=== PATIENT | female | born 1945 | race Caucasian/White ===

== ENCOUNTER 2018-05-17 17:24 | Inpatient (IN) | payer MEDICARE, OTHER ==
[~2018-05-17] VITALS: Ht 152.4 cm; Wt 65.3 kg
[~2018-05-17 17:24] MED LIST: DIGO250T PO; DOCU-270 PO; FOLI1TAB16 PO; LEVO200T8 PO; LIDO30AD10 TP; OXCA300T4 PO; OXYB5TAB PO
--- NOTE | 2018-05-17 18:01 | NUR ---
BIB [facility] FOR BILATERAL LOWER EXTREMITY PAIN AND SWELLING. A/OX3. DENIES CHEST PAIN/SOB. ON CONT O2 VIA NC. NAD. VSS RR EVEN AND UNLABORED. ALL NEEDS ARE ATTENDED, WILL CONT TO MONITOR
[2018-05-17 18:06] LABS: BASOPHILS % (AUTO) 1.1 % (0.0-2.0); EOSINOPHILS % (AUTO) 1.8 % (0.0-6.0); HEMATOCRIT 36 % (33-45); HEMOGLOBIN 11.7 g/dL (11.5-14.8); LYMPHOCYTES # (AUTO) 0.9 /CMM (0.8-4.8); LYMPHOCYTES % (AUTO) 24.8 % (20.0-44.0); MEAN CORPUSCULAR HEMOGLOBIN 31 PG (26.0-33.0); MEAN CORPUSCULAR HGB CONC 33 g/dl (31.0-36.0); MEAN CORPUSCULAR VOLUME 96 fL (82-100); MONOCYTES # (AUTO) 0.5 /CMM (0.1-1.30); MONOCYTES % (AUTO) 14.8 % (2.0-12.0); NEUTROPHILS # (AUTO) 2.1 /CMM (1.8-8.9); NEUTROPHILS % (AUTO) 57.5 % (43.0-81.0); PLATELET COUNT (AUTO) 128 /CMM (150-450); RDW COEFFICIENT OF VARIATION 14.3 (11.5-15.0); RED BLOOD CELL COUNT(AUTO) 3.74 MIL/uL (4.0-5.2); WHITE BLOOD COUNT (AUTO) 3.6 K/uL (4.3-11.0)
[2018-05-17 18:17] LABS: CALCIUM, SERUM 9.5 mg/dL (8.5-10.1); CARBON DIOXIDE 27 mmol/L (21-32); CHLORIDE 105 mmol/L (98-107); CREATININE 1.3 mg/dL (0.6-1.3); GLUCOSE 98 mg/dL (74-106); POTASSIUM 4.5 mmol/L (3.5-5.1); SODIUM SERUM 138 mmol/L (136-145); UREA NITROGEN, BLOOD 20 mg/dL (7-18)
[2018-05-17 18:22] LABS: INR 0.96 (0.85-1.15)
[2018-05-17 18:28] LABS: TROPONIN I < 0.017 ng/mL (0.00-0.056)
[2018-05-17 18:30] LABS: ALANINE AMINOTRANSFERASE 10 U/L (12-78); ALBUMIN 3.2 g/dL (3.4-5.0); ALKALINE PHOSPHATASE 75 U/L (46-116); ASPARTATE AMINOTRANSFERASE 8 U/L (15-37); B-TYPE NATRIURETIC PEPTIDE 902 PG/ML (0-125); BILIRUBIN,DIRECT 0.1 mg/dL (0.0-0.2); BILIRUBIN,TOTAL 0.3 mg/dL (0.2-1.0); TOTAL PROTEIN, SERUM 6.5 g/dL (6.4-8.2)
[2018-05-17] MEDS ORDERED: NITROGLYCERIN PACKET 1 GM PACKET TOP ONE (18:30)
[2018-05-17] MEDS ORDERED: ASPIRIN 325 MG TABLET PO ONE (18:30)
[2018-05-17] MEDS ORDERED: FUROSEMIDE 20 MG/2 ML VIAL IV ONE (18:30)
[2018-05-17] MEDS ORDERED: METR500T4 PO (18:53)
[2018-05-17] MEDS ORDERED: TOLT4CAP PO (18:53)
[2018-05-17] MEDS ORDERED: LEVO137T2 PO (18:53)
[2018-05-17] MEDS ORDERED: GABA-532 PO (18:53)
[2018-05-17] MEDS ORDERED: SERT25TA PO (18:53)
[2018-05-17] MEDS ORDERED: DILT-32 PO (18:53)
[2018-05-17] MEDS ORDERED: ZOLP5TAB8 PO (18:53)
[2018-05-17] MEDS ORDERED: NALO25TA PO (18:53)
[2018-05-17] MEDS ORDERED: SENN-167 PO (18:53)
[2018-05-17] MEDS ORDERED: CIPR-262 PO (18:53)
[2018-05-17] MEDS ORDERED: OXYC-133 PO (18:53)
[2018-05-17] MEDS ORDERED: DIVA-78 PO (18:53)
[2018-05-17] MEDS ORDERED: ARIP20TA4 PO (18:53)
[2018-05-17] MEDS ORDERED: DOCU250C14 PO (18:53)
--- NOTE | 2018-05-17 18:57 | NUR ---
CALLED DR WRIGHT ANSWERING SERVICE, LEFT A VOICEMAIL.
[2018-05-17] MEDS ORDERED: methylPREDNISolone SOD SUCC 125 MG/2ML VIAL IV ONE (19:00)
[2018-05-17] MEDS ORDERED: methylPREDNISolone SOD SUCC 125 MG/2ML VIAL ONE (19:24)
[2018-05-17] MEDS ORDERED: FUROSEMIDE 20 MG/2 ML VIAL ONE (19:24)
[2018-05-17] MEDS ORDERED: ASPIRIN 325 MG TABLET ONE (19:25)
[2018-05-17] MEDS ORDERED: NITROGLYCERIN PACKET 1 GM PACKET ONE (19:25)
[2018-05-17 19:50] LABS: APPEARANCE,URINE Clear (CLEAR); BILIRUBIN,URINE Negative (NEGATIVE); BLOOD, URINE Trace-intact Ery/uL (NEGATIVE); COLOR,URINE Yellow (YELLOW); KETONES,URINE Negative (NEGATIVE); LEUKOCYTE ESTERASE ,URINE Moderate (NEGATIVE); NITRITE, URINE Negative (NEGATIVE); PROTEIN,URINE Negative (NEGATIVE); UGLUCOSE Negative (NEGATIVE); UROBILINOGEN,URINE 0.2 EU/dL (0.2)
[2018-05-17 20:00] VITALS: BP 132/71
--- NOTE | 2018-05-17 20:05 | NUR ---
NEW ADMISSION POLICE CAPTAIN OPENING NOTES RECEIVED PT FROM ER [facility], ACCOMPANIED BY STAFF. A & O X 3, NO C/O PAIN, NO ACUTE DISTRESS NOTED. ON O2 @ 2 LPM VIA NC, SATTING 94%. VS CHECKED & STABLE. IV ACCESS TO LEFT HAND, SL, INTACT PATENT. ON BED REST WITH BRP PER MD ORDER. PT HAS SWELLING OF BLE WITH C/O MILD PAIN. BODY CHECK DONE, PHOTOS TAKEN, PLACED IN THE CHART. ON TELE MONITOR WITH SR WITH PVC'S 75. NO C/O CHEST PAIN, NO SOB NOTED. PT REFUSED TO USE BSC & WANTED TO WEAR A DIAPER SINCE LASIX WAS GIVEN IN THE ER (PER PT ). CLOSELY.ON CARDIAC DIET, HAD SNACK, TOLERATED WELL. ALL BELONGINGS ACCOUNTED FOR & DOCUMENTED BY CHUCKER. ALL NEW ORDERS REVIEWED WITH MD, NOTED & CARRIED OUT. SAFETY MEASURES IN PLACE. BED IN LOW LOCKED POSITION. CALL LIGHT WITHIN REACH. WILL CONTINUE TO MONITOR.
[2018-05-17 20:10] VITALS: BP 122/71
[2018-05-17 20:12] LABS: BACTERIA,URINE 1+ /HPF (None Seen); SQUAMOUS EPITHELIAL CELL,UR Few /HPF (None Seen)
--- NOTE | 2018-05-17 20:30 | NUR ---
NAPHTHALENE STILL OPERATOR NOTE PT REFUSED TO LET THE RN ASSESS THE SACRAL AREA FOR INITIAL PHYSICAL ASSESSMENT,STATED, "CHECK IT LATER, NOT NOW. MY SKIN IS GOOD." WILL RETRY TO ASSESS PT'S SACRAL AREA AGAIN IF PT ALLOWS.
[2018-05-17] MEDS: NITROGLYCERIN 30 GM TUBE TP SCH (21:00)
[2018-05-17] MEDS ORDERED: oxyCODONE/APAP (5/325 MG) 1 UDTAB TABLET PO PRN ×2 (21:00→21:30)
[2018-05-17] MEDS ORDERED: ACETAMINOPHEN 325 MG TABLET PO PRN (21:00)
[2018-05-17] MEDS ORDERED: ONDANSETRON HCL/PF 4 MG/2 ML VIAL IVP PRN (21:30)
--- NOTE | 2018-05-17 21:30 | NUR ---
PT REFUSES TO PROVIDE HISTORY PT GETS AGITATED WHEN ASKED QUESTIONS PER PROTOCOL NEW ADMISSION. SHE REFUSED TO ANSWER MULTIPLE QUESTIONS, GAVE HER SPACE & SHE RELAXED. SNACK GIVEN & TOLERATED WELL.
[2018-05-17] MEDS: ZOLPIDEM TARTRATE 5 MG TABLET PO SCH (22:00)
[2018-05-17] MEDS: ENOXAPARIN SODIUM 40 MG/0.4 ML DISP.SYRIN SQ SCH (22:07)
[2018-05-17] MEDS: FUROSEMIDE 20 MG/2 ML VIAL IV SCH (22:07)
--- NOTE | 2018-05-17 22:17 | NUR ---
REFUSED AMBIEN PT REFUSED TO TAKE AMBIEN, STATED SHE GETS BETTER SLEEP WITHOUT TAKING ANY SLEEPING PILL. PT IS A & O X 4.
--- NOTE | 2018-05-17 22:23 | NUR ---
HELD NITRO PATCH PT'S BP NOTED TO BE 107/65 @ THIS TIME, HELD NITRO PATCH PER MD INSTRUCTIONS FOR NITRO ORDER. WILL MONITOR CLOSELY.
[2018-05-18] VITALS (7 sets, daily range): BP systolic 92–148; BP diastolic 54–71
--- NOTE | 2018-05-18 02:05 | NUR ---
SQUIRT MACHINE OPERATOR NOTE PT ALLOWED THE RN TO ASSESS HER SACRAL AREA, NOTED WITH REDNESS. DOCUMENTED FINDINGS. WILL F/U WITH WOUND NURSE IN AM PER MD ORDER.
[2018-05-18] MEDS: NITROGLYCERIN 30 GM TUBE TP SCH ×4 (03:00→21:00)
--- NOTE | 2018-05-18 03:55 | NUR ---
HELD NITRO PATCH PT'S BP NOTED TO BE 106/63, NITRO PATCH HELD PER MD ORDER INSTRUCTIONS. PT IS BACK TO SLEEP & RELAXED @ THIS TIME.
--- NOTE | 2018-05-18 05:36 | NUR ---
STRAIGHTENING ROLL OPERATOR NOTE PT IS SLEEPING COMFORTABLY. NO SOB, NO C/O PAIN VERBALIZED. ON TELE MONITORING, SR WITH PVC'S 72/MIN. CONTINUING TO MONITOR CLOSELY.
--- NOTE | 2018-05-18 06:35 | NUR ---
ROCK DUST SPRAYER CLOSING NOTES PT SLEPT WELL @ NIGHT. A & O X 3. NO C/O CHEST PAIN, NO SOB, NO ACUTE DISTRESS NOTED. ASSISTED WITH ADL CARE PRN. IV ACCESS INTACT PATENT TO LEFT HAND, HL. IN SEMI CRUMP POSITION. VSS. NO CHANGES NOTED. ON TELE MONITORING, SR WITH PVC'S 72. SAFETY MEASURES IN PLACE. BED IN LOW LOCKED POSITION. CALL LIGHT WITHIN REACH. WILL ENDORSE TO AM RN FOR CONTINUITY OF CARE.
[2018-05-18 06:58] LABS: BASOPHILS % (AUTO) 0.3 % (0.0-2.0); EOSINOPHILS % (AUTO) 0.1 % (0.0-6.0); HEMATOCRIT 40 % (33-45); HEMOGLOBIN 13.4 g/dL (11.5-14.8); LYMPHOCYTES # (AUTO) 0.4 /CMM (0.8-4.8); LYMPHOCYTES % (AUTO) 16.3 % (20.0-44.0); MEAN CORPUSCULAR HEMOGLOBIN 33 PG (26.0-33.0); MEAN CORPUSCULAR HGB CONC 33 g/dl (31.0-36.0); MEAN CORPUSCULAR VOLUME 98 fL (82-100); MONOCYTES % (AUTO) 0.9 % (2.0-12.0); NEUTROPHILS # (AUTO) 2.3 /CMM (1.8-8.9); NEUTROPHILS % (AUTO) 82.4 % (43.0-81.0); PLATELET COUNT (AUTO) 129 /CMM (150-450); RDW COEFFICIENT OF VARIATION 15.6 (11.5-15.0); WHITE BLOOD COUNT (AUTO) 2.7 K/uL (4.3-11.0)
[2018-05-18 07:16] LABS: CALCIUM, SERUM 9.2 mg/dL (8.5-10.1); CARBON DIOXIDE 26 mmol/L (21-32); CHLORIDE 103 mmol/L (98-107); CREATININE 1.1 mg/dL (0.6-1.3); GLUCOSE 144 mg/dL (74-106); POTASSIUM 3.7 mmol/L (3.5-5.1); SODIUM SERUM 141 mmol/L (136-145); UREA NITROGEN, BLOOD 23 mg/dL (7-18)
[2018-05-18 07:40] LABS: CHOLESTEROL 151 mg/dL (<200); HDL CHOLESTEROL 54 mg/dL (40-60); LDL 83 mg/dL (0-99); TRIGLYCERIDES 67 mg/dL (30-150)
[2018-05-18] MEDS: DOCUSATE SODIUM 250 MG CAPSULE PO SCH (08:40)
[2018-05-18] MEDS: SENNOSIDES 8.6 MG TABLET PO SCH (08:40)
[2018-05-18] MEDS: PANTOPRAZOLE 40 MG TABLET.DR PO SCH (08:40)
[2018-05-18] MEDS: SERTRALINE HCL 25 MG TABLET PO SCH (08:40)
[2018-05-18] MEDS: ASPIRIN 81 MG TAB.CHEW PO SCH (08:40)
[2018-05-18] MEDS: DIVALPROEX SODIUM 500 MG TABLET.DR PO SCH ×2 (08:40→17:31)
[2018-05-18] MEDS: LEVOTHYROXINE SODIUM 137 MCG TABLET PO SCH (08:40)
[2018-05-18] MEDS: GABAPENTIN 100 MG CAPSULE PO SCH ×3 (08:40→17:31)
[2018-05-18] MEDS: DILTIAZEM HCL CD 120 MG PO SCH (08:53)
[2018-05-18 09:50] LABS: BAND % (MANUAL) 4 % (0.0-5.0); LYMPHOCYTES % (MANUAL) 11 % (16-48); MONOCYTES % (MANUAL) 4 % (0-11.0); NEUTROPHILS % (MANUAL) 81 (42-76)
[2018-05-18] MEDS: FUROSEMIDE 20 MG/2 ML VIAL IV SCH ×2 (09:55→21:21)
[2018-05-18 10:21] LABS: MAGNESIUM 1.8 mg/dL (1.8-2.4); PHOSPHORUS 4.4 mg/dL (2.5-4.9)
[2018-05-18] MEDS: IPRATROPIUM NEB FS 0.5 MG/2.5 ML AMPUL.NEB NEB SCH ×3 (10:30→19:13)
[2018-05-18] MEDS: ALBUTEROL HALF STRENGTH 1.25 MG/3 ML VIAL.NEB NEB SCH ×3 (10:30→19:13)
[2018-05-18 10:31] LABS: THYROID STIMULATING HORMONE 1.143 uIU/mL (0.358-3.74)
--- NOTE | 2018-05-18 10:54 | NUR ---
PT NOT FOUND IN ROOM FOR INITIAL TXS. RN SUNITA NOTIFIED.
--- NOTE | 2018-05-18 12:04 | NUR ---
TELE INITIAL RN NOTE PT IS A&O X3, IS AWAKE IN BED WITH THE BED IN THE LOWEST POSITION, SIDE RAILS UP X2. PT AWAITING FOR HER SON TO ARRIVE. PT HAS NO DISTRESS, NOR PAIN. IV INTACT AND PATENT IN LEFT HAND. WILL CONTINUE TO MONITOR AND FOLLOW UP FOR PROCEDURES.
[2018-05-18 12:06] LABS: ABG BASE EXCESS 3.5 mmol/L; ABG OXYGEN SATURATION 89.8 % (92.0-98.5); ABG PCO2 49.7 mmHg (35.0-45.0); ABG PH 7.389 (7.350-7.450); ABG PO2 61.3 mmHg (75.0-100.0); AaDO2 28.9 mmHg; COHb 1.5 % (0.5-1.5); MetHb 0.6 % (0.0-1.5); O2Hb 87.9 % (94.0-97.0); SITE, ABG Left Radial; VENT MODE, BG ROOM AIR
[2018-05-18] MEDS ORDERED: Z GUARD REMEDY 2 OZ OINT TP SCH (14:00)
--- NOTE | 2018-05-18 14:02 | NUR ---
WOUND CARE CONSULT: PATIENT SEEN AND SKIN INTEGRITY ASSESSMENT DONE. PLEASE SEE FORGEMAN HELPER ASSESSMENT IN PCS. TREATMENT RECOMMENDATION DISCUSSED WITH MD AND IN AGREEMENT. PATIENT WITH ASHER OF 18. ALL MEASURE ULCER PREVENTION MEASURES NOTED TO BE IN PLACE PER PLAN OF CARE. WILL SEE PATIENT PRN. Addendum: 05/18/18 at 1405 by ASHU COTO RN Amended: Links added.
[2018-05-18] MEDS: Z GUARD REMEDY 2 OZ OINT TP SCH ×2 (14:38→21:24)
--- NOTE | 2018-05-18 17:14 | NUR ---
Patient resides at [facility] [phone].Spoke Priyanka admin - confirm patient bed is available when discharge. Patient was ambulating without assistive device and utilize walker when needed. She was previously on service with [facility] [phone]. Addendum: 05/18/18 at 1714 by LINA FAUSTIN RN Amended: Links added.
--- NOTE | 2018-05-18 18:31 | NUR ---
MS CLOSING NOTES PT REMAINS IN BED, AWAKE. PT IS ON NASAL CANNULA 2L O2. PT WAS IMPLEMENTED ALL SAFETY MEASURES AND WOUND CARE MEASURES. PT HAS NO COMPLAINS THROUGHOUT SHIFT. WILL ENDORSE TO LOG HANDLING EQUIPMENT OPERATOR.
[2018-05-18] MEDS: oxyCODONE/APAP (5/325 MG) 1 UDTAB TABLET PO PRN ×2 (18:42→23:17)
--- NOTE | 2018-05-18 19:10 | NUR ---
MS RN OPENING NOTE Patient was seen sitting upright in bed AAOx3, breathing on 2L O2 NC with no SOB, and no signs of acute distress. IV in the left hand is intact and patent. Bed is in the low/locked position, two side rails up, and call nelson within reach. Patient requested additional snacks and apple juice for the evening, but otherwise has no concerns. Will continue to monitor.
--- NOTE | 2018-05-18 19:14 | NUR ---
PATIENT REFUSED HHN TREATMENT FOR TONIGHT; NO DISTRESS/SOB NOTED; NOTIFIED RN. Addendum: 05/18/18 at 1914 by NOEMY SUAREZ RT Amended: Links added.
[2018-05-18] MEDS: ZOLPIDEM TARTRATE 5 MG TABLET PO SCH ×2 (21:22→21:39)
[2018-05-18] MEDS: ENOXAPARIN SODIUM 40 MG/0.4 ML DISP.SYRIN SQ SCH (21:25)
--- NOTE | 2018-05-18 23:17 | NUR ---
MS RN NOTE - Percocet Patient requested Percocet for 8/10 pain in low back (chronic back pain) and for 8/10 pain in bilateral feet due to pitting edema. Two tablets of 5/325mg PO Percocet was administered per orders for pain relief. Will continue to monitor.
[2018-05-19] MEDS: IPRATROPIUM NEB FS 0.5 MG/2.5 ML AMPUL.NEB NEB SCH ×3 (01:30→13:30)
[2018-05-19] MEDS: ALBUTEROL HALF STRENGTH 1.25 MG/3 ML VIAL.NEB NEB SCH ×3 (01:30→13:30)
[2018-05-19 02:50] VITALS: BP 81/56
[2018-05-19 03:00] VITALS: BP 85/49
[2018-05-19] MEDS: NITROGLYCERIN 30 GM TUBE TP SCH ×2 (03:00→08:56)
--- NOTE | 2018-05-19 03:07 | NUR ---
MS RN NOTE - Low BP, Nitro Oint non-administered Patient's BP was found to be 81/56 on the left arm. Patient is AAOx3; she denies dizziness, lightheadedness, headache. No mental status changes. Patient advised to drink fluids. Upon re-assessment BP is 85/49; patient is still alert and asymptomatic, up in bed reading a book. Scheduled Nitro Ointment non-administered; checked patient's chest and back to ensure that previous nitro patch was removed. Notified charge nurse, Delia, who advised continued frequent BP checks; per charge nurse, no need to notify physician at this time since patient is fully alert/oriented and asymptomatic. Will continue to monitor.
[2018-05-19 03:30] VITALS: BP 102/57
[2018-05-19 06:20] LABS: BASOPHILS % (AUTO) 0.2 % (0.0-2.0); HEMATOCRIT 39 % (33-45); HEMOGLOBIN 12.7 g/dL (11.5-14.8); LYMPHOCYTES # (AUTO) 1.1 /CMM (0.8-4.8); LYMPHOCYTES % (AUTO) 21.3 % (20.0-44.0); MEAN CORPUSCULAR HEMOGLOBIN 32 PG (26.0-33.0); MEAN CORPUSCULAR HGB CONC 33 g/dl (31.0-36.0); MEAN CORPUSCULAR VOLUME 99 fL (82-100); MONOCYTES # (AUTO) 0.6 /CMM (0.1-1.30); MONOCYTES % (AUTO) 12.7 % (2.0-12.0); NEUTROPHILS # (AUTO) 3.3 /CMM (1.8-8.9); NEUTROPHILS % (AUTO) 65.8 % (43.0-81.0); PLATELET COUNT (AUTO) 130 /CMM (150-450); RDW COEFFICIENT OF VARIATION 15.6 (11.5-15.0); RED BLOOD CELL COUNT(AUTO) 3.93 MIL/uL (4.0-5.2)
[2018-05-19] MEDS: PANTOPRAZOLE 40 MG TABLET.DR PO SCH (06:32)
[2018-05-19] MEDS: LEVOTHYROXINE SODIUM 137 MCG TABLET PO SCH (06:32)
[2018-05-19 06:50] LABS: ALANINE AMINOTRANSFERASE 10 U/L (12-78); ALBUMIN 2.9 g/dL (3.4-5.0); ALKALINE PHOSPHATASE 65 U/L (46-116); ASPARTATE AMINOTRANSFERASE 8 U/L (15-37); BILIRUBIN,TOTAL 0.2 mg/dL (0.2-1.0); CALCIUM, SERUM 8.5 mg/dL (8.5-10.1); CARBON DIOXIDE 30 mmol/L (21-32); CHLORIDE 102 mmol/L (98-107); CREATININE 1.3 mg/dL (0.6-1.3); GLUCOSE 100 mg/dL (74-106); MAGNESIUM 1.7 mg/dL (1.8-2.4); PHOSPHORUS 4.3 mg/dL (2.5-4.9); POTASSIUM 3.4 mmol/L (3.5-5.1); SODIUM SERUM 140 mmol/L (136-145); TOTAL PROTEIN, SERUM 6.2 g/dL (6.4-8.2); UREA NITROGEN, BLOOD 34 mg/dL (7-18)
--- NOTE | 2018-05-19 07:00 | NUR ---
MS RN CLOSING NOTE Patient is sleeping but awakes easily by name and light touch. Patient is AAOx3, breathing on 2L O2 NC with no SOB, and no signs of acute distress. Patient slept intermittently overnight but remained free of complications. Patient had an episode of low BP but was asymptomatic and is now stable at 102/57 (see previous nurses notes for details). Bed is low/locked, two side rails up, and call nelson within reach. All patient needs have been addressed this shift. Patient care endorsed to day shift nurse.
--- NOTE | 2018-05-19 07:58 | NUR ---
MS OPENING NOTES PT IS A&O X3, AWAKE IN BED. PT IS ON O2 OF 2L NASAL CANNULA. PT DENIES SOB, HAS NO RESPIRATORY DISTRESS. DENIES PAIN. PT IS ABLE TO AMBULATE WITH ASSISTANCE, USES A WALKER. PT HAS IV INTACT AND PATENT ON L HAND, DENIES PAIN AT THE IV SITE. PT IS PLACED IN LOWEST POSITION AND SEMI FOWLERS. CALL LIGHT IN REACH, WILL CONTINUE TO MONITOR THROUGHOUT SHIFT.
[2018-05-19 08:00] VITALS: BP 94/50
[2018-05-19] MEDS: SERTRALINE HCL 25 MG TABLET PO SCH (08:41)
[2018-05-19] MEDS: ASPIRIN 81 MG TAB.CHEW PO SCH (08:41)
[2018-05-19] MEDS: SENNOSIDES 8.6 MG TABLET PO SCH (08:41)
[2018-05-19] MEDS: DIVALPROEX SODIUM 500 MG TABLET.DR PO SCH (08:43)
[2018-05-19] MEDS: GABAPENTIN 100 MG CAPSULE PO SCH ×2 (08:43→13:06)
[2018-05-19] MEDS: DOCUSATE SODIUM 250 MG CAPSULE PO SCH (08:43)
[2018-05-19] MEDS: DILTIAZEM HCL CD 120 MG PO SCH (08:56)
[2018-05-19] MEDS: Z GUARD REMEDY 2 OZ OINT TP SCH (09:16)
[2018-05-19] MEDS ORDERED: POTASSIUM CHLORIDE 20 MEQ TAB.PRT.SR PO ONE (11:00)
[2018-05-19] MEDS: Magnesium 1GM/D5W 100ML PREMIX 100 ML IV SCH ×2 (11:20→12:53)
[2018-05-19 14:30] VITALS: BP 114/68
--- NOTE | 2018-05-19 15:00 | NUR ---
RN MS NOTES PT IN BED, AWAKE, ALERT AND ORIENTED, DENIES PAIN, RESPIRATIONS NORMAL AND NOT LABORED, ASSISTED TO BATHROOM NEEDED, ABLE TO AMBULATE WITH STANDBY ASSISTANCE, SEEN BY DR. MARTÍNEZ, DISCHARGE ORDER GIVEN, DISCHARGE AND MEDICATION INSTRUCTIONS PROVIDED TO PT, VERBALIZED UNDERSTANDING, PT REFUSED SKIN CHECK AND PHOTOS, BELONGINGS ACCOUNTED FOR, VITALS TAKEN AND RECORDED, PICKED UP BY 2 AMBULANCE PERSONNEL, LEFT VIA GUERNEY IN STABLE CONDITION, SPOKE WITH AYLEEN OF [facility], INFORMED THAT PT IS COMING BACK.
[2018-05-19 16:00] VITALS: BP 114/68
== END 2018-05-19 15:00 | DRG 191 ==
LOC: ER 17:25 → TELE 19:40 → MED 05-18 11:21
PROVIDERS: ADMIT Legal Medicine; ATTEND Legal Medicine
DX: J44.1 Chronic obstructive pulmonary disease with (acute) exacerbation (principal); N39.0 Urinary tract infection, site not specified; I50.32 Chronic diastolic (congestive) heart failure; F31.9 Bipolar disorder, unspecified; F17.210 Nicotine dependence, cigarettes, uncomplicated; G89.4 Chronic pain syndrome; R09.02 Hypoxemia; M54.5 Low back pain; E03.9 Hypothyroidism, unspecified; D72.819 Decreased white blood cell count, unspecified; Z85.810 Personal history of malignant neoplasm of tongue; I27.81 Cor pulmonale (chronic); I89.0 Lymphedema, not elsewhere classified; I11.0 Hypertensive heart disease with heart failure
CPT/HCPCS: 36415; 36600; 71045-TC; 71250-TC; 80048-TC; 80053-TC; 80061-TC; 80076-TC; 81000-TC; 82803-TC; 83735-TC; 83880; 84100-TC; 84439-TC; 84443-TC; 84484-TC; 85025-TC; 85730-TC; 87081-TC; 87086-TC; 87186-TC; 93307-TC; 93970-TC; 94799-TC; A4606; J1650; J1940; J2930; J3475; Z7610

== ENCOUNTER 2019-03-31 11:55 | Emergency (ER) | payer MEDICARE, OTHER ==
[~2019-03-31] VITALS: Ht 170.2 cm; Wt 69.9 kg
[~2019-03-31 11:55] MED LIST changes: +ARIP20TA4 PO; +CIPR-262 PO; -DIGO250T PO; +DILT-32 PO; +DIVA-78 PO; -DOCU-270 PO; +DOCU250C14 PO; -FOLI1TAB16 PO; +GABA-532 PO; +LEVO137T2 PO; -LEVO200T8 PO; -LIDO30AD10 TP; +METR-147 PO; +NALO25TA PO; -OXCA300T4 PO; -OXYB5TAB PO; +OXYC-133 PO; +SENN-168 PO; +SERT25TA PO; +TOLT4CAP PO; +ZOLP5TAB8 PO
[2019-03-31] MEDS ORDERED: LEVO150T8 PO (12:24)
[2019-03-31] MEDS ORDERED: FLUO-119 PO (12:24)
--- NOTE | 2019-03-31 12:26 | NUR ---
ROMA FROM [facility], C/O CONSTIPATION FOR 19 DAYS, PER PATIENT. PATIENT A/OX3, BREATHING EVEN AND UNLABORED, NO SOB NOTED, NO DISTRESS NOTED. WILL CONTINUE TO MONITOR.
[2019-03-31 12:46] LABS: EOSINOPHILS % (AUTO) 2.1 % (0.0-6.0); HEMATOCRIT 34 % (33-45); HEMOGLOBIN 11.2 g/dL (11.5-14.8); LYMPHOCYTES # (AUTO) 0.9 /CMM (0.8-4.8); LYMPHOCYTES % (AUTO) 23.6 % (20.0-44.0); MEAN CORPUSCULAR HGB CONC 33 g/dl (31.0-36.0); MEAN CORPUSCULAR VOLUME 96 fL (82-100); MONOCYTES # (AUTO) 0.7 /CMM (0.1-1.30); MONOCYTES % (AUTO) 19.3 % (2.0-12.0); NEUTROPHILS # (AUTO) 2.1 /CMM (1.8-8.9); PLATELET COUNT (AUTO) 106 /CMM (150-450); RED BLOOD CELL COUNT(AUTO) 3.49 MIL/uL (4.0-5.2); WHITE BLOOD COUNT (AUTO) 3.8 K/uL (4.3-11.0)
[2019-03-31 12:53] LABS: CALCIUM, SERUM 8.9 mg/dL (8.5-10.1); CARBON DIOXIDE 30 mmol/L (21-32); CHLORIDE 106 mmol/L (98-107); CREATININE 1.4 mg/dL (0.6-1.3); GLUCOSE 85 mg/dL (74-106); POTASSIUM 4.3 mmol/L (3.5-5.1); SODIUM SERUM 141 mmol/L (136-145); UREA NITROGEN, BLOOD 20 mg/dL (7-18)
[2019-03-31] MEDS ORDERED: oxyCODONE/APAP (5/325 MG) 1 UDTAB TABLET ONE (12:54)
[2019-03-31 12:59] LABS: ALANINE AMINOTRANSFERASE 8 U/L (12-78); ALKALINE PHOSPHATASE 51 U/L (46-116); ASPARTATE AMINOTRANSFERASE 9 U/L (15-37); BILIRUBIN,DIRECT 0.1 mg/dL (0.0-0.2); BILIRUBIN,TOTAL 0.3 mg/dL (0.2-1.0); TOTAL PROTEIN, SERUM 5.9 g/dL (6.4-8.2)
[2019-03-31] MEDS ORDERED: oxyCODONE/APAP (5/325 MG) 1 UDTAB TABLET PO ONE (13:00)
--- NOTE | 2019-03-31 14:00 | NUR ---
PATIENT IN NO APPARENT DISTRESS, VITALS ON HER BASELINE PER PATIENT.
[2019-03-31 14:01] LABS: EOSINOPHILS % (MANUAL) 1 % (0-4); LYMPHOCYTES % (MANUAL) 24 % (16-48); MONOCYTES % (MANUAL) 13 % (0-11.0); NEUTROPHILS % (MANUAL) 62 (42-76)
[2019-03-31 14:55] LABS: APPEARANCE,URINE Clear (CLEAR); BILIRUBIN,URINE Negative (NEGATIVE); BLOOD, URINE Small Ery/uL (NEGATIVE); COLOR,URINE Yellow (YELLOW); KETONES,URINE Negative (NEGATIVE); LEUKOCYTE ESTERASE ,URINE Large (NEGATIVE); NITRITE, URINE Negative (NEGATIVE); PH,URINE 6.5 (5.0-8.0); PROTEIN,URINE 30 mg/dl (NEGATIVE); UGLUCOSE Negative (NEGATIVE); UROBILINOGEN,URINE 0.2 EU/dL (0.2)
[2019-03-31 14:59] LABS: BACTERIA,URINE Few /HPF (None Seen); SQUAMOUS EPITHELIAL CELL,UR Few /HPF (None Seen)
[2019-03-31] MEDS ORDERED: LIDOCAINE /MPF 1% VIAL 5 ML VIAL ONE (15:22)
[2019-03-31] MEDS ORDERED: CEFTRIAXONE 1 G VIAL ONE (15:22)
[2019-03-31] MEDS ORDERED: CEFTRIAXONE 1 G in IV D5W 50 ML IV ONE (15:30)
[2019-03-31] MEDS ORDERED: CEFTRIAXONE 1 G VIAL IM ONE (15:30)
--- NOTE | 2019-03-31 15:30 | NUR ---
CALLED FOR [facility] TRANSPORT, ETA 1700, TRIP NUMBER [id number]
--- NOTE | 2019-03-31 16:54 | NUR ---
PATIENT A/OX3, BREATHING EVEN AND UNLABORED, NO SOB NOTED. WILL CONTINUE TO MONITOR. AWAITING FOR TRANSPORTATION.
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
[2019-03-31 18:41] VITALS: BP 100/68
== END 2019-03-31 18:42 | disposition home or self-care (01) ==
LOC: ER 12:00
DX: K59.00 Constipation, unspecified (principal); M54.5 Low back pain; F32.9 Major depressive disorder, single episode, unspecified; F41.9 Anxiety disorder, unspecified; G62.9 Polyneuropathy, unspecified; I12.9 Hypertensive chronic kidney disease with stage 1 through stage 4 chronic kidney disease, or unspecified chronic kidney disease; N18.9 Chronic kidney disease, unspecified; Z79.899 Other long term (current) drug therapy; W19.XXXA Unspecified fall, initial encounter; Y93.89 Activity, other specified; Y92.89 Other specified places as the place of occurrence of the external cause; Y99.8 Other external cause status
CPT/HCPCS: 36415; 72131; 74176; 80048; 80076; 81001; 85025; 87086; 96372; 99284; J0696 ×2; J3490; J7060; 81000-TC

== ENCOUNTER 2019-04-22 14:35 | Emergency (ER) | payer MEDICARE, OTHER ==
[~2019-04-22] VITALS: Ht 152.4 cm; Wt 59.9 kg
[~2019-04-22 14:35] MED LIST changes: -CIPR-262 PO; -DILT-32 PO; -DOCU250C14 PO; +FLUO-119 PO; -LEVO137T2 PO; +LEVO150T8 PO; -METR-147 PO; -NALO25TA PO; -SENN-168 PO; -SERT25TA PO; -TOLT4CAP PO; -ZOLP5TAB8 PO
--- NOTE | 2019-04-22 15:00 | NUR ---
PT ANGELINA FROM [facility] FOR HEMATOMA TO [facility] S/P GLF; PT AAOX4, -SOB, PT TO BED 6, DENIES PAIN/DISCOMFORT, PT ON MONITOR, VSS, PENDING MD HILL
[2019-04-22 16:16] LABS: BASOPHILS % (AUTO) 0.3 % (0.0-2.0); HEMATOCRIT 43 % (33-45); HEMOGLOBIN 14.2 g/dL (11.5-14.8); LYMPHOCYTES # (AUTO) 0.5 /CMM (0.8-4.8); LYMPHOCYTES % (AUTO) 5.5 % (20.0-44.0); MEAN CORPUSCULAR HGB CONC 33 g/dl (31.0-36.0); MEAN CORPUSCULAR VOLUME 95 fL (82-100); MONOCYTES # (AUTO) 0.4 /CMM (0.1-1.30); MONOCYTES % (AUTO) 4.3 % (2.0-12.0); NEUTROPHILS # (AUTO) 8.9 /CMM (1.8-8.9); NEUTROPHILS % (AUTO) 89.9 % (43.0-81.0); PLATELET COUNT (AUTO) 119 /CMM (150-450); RED BLOOD CELL COUNT(AUTO) 4.48 MIL/uL (4.0-5.2); WHITE BLOOD COUNT (AUTO) 9.9 K/uL (4.3-11.0)
[2019-04-22 16:47] LABS: CALCIUM, SERUM 9.6 mg/dL (8.5-10.1); CARBON DIOXIDE 30 mmol/L (21-32); CHLORIDE 102 mmol/L (98-107); CREATININE 1.3 mg/dL (0.6-1.3); GLUCOSE 138 mg/dL (74-106); POTASSIUM 3.7 mmol/L (3.5-5.1); SODIUM SERUM 143 mmol/L (136-145); UREA NITROGEN, BLOOD 20 mg/dL (7-18)
--- NOTE | 2019-04-22 19:30 | NUR ---
URINE COLLECTED AND SENT TO LAB
[2019-04-22 19:38] LABS: APPEARANCE,URINE Clear (CLEAR); BILIRUBIN,URINE Negative (NEGATIVE); BLOOD, URINE Negative Ery/uL (NEGATIVE); COLOR,URINE Light yellow (YELLOW); KETONES,URINE Negative (NEGATIVE); LEUKOCYTE ESTERASE ,URINE Negative (NEGATIVE); NITRITE, URINE Negative (NEGATIVE); PH,URINE 7.5 (5.0-8.0); PROTEIN,URINE Negative (NEGATIVE); UGLUCOSE Negative (NEGATIVE); UROBILINOGEN,URINE 0.2 EU/dL (0.2)
--- NOTE | 2019-04-22 20:16 | NUR ---
REPORT GIVEN TO KODY NURSE AT [facility]
--- NOTE | 2019-04-22 21:05 | NUR ---
[facility] ETA 2230. TRANSFER #[id number]
[2019-04-22 23:07] VITALS: BP 130/68
--- NOTE | 2019-04-22 23:11 | NUR ---
PT LEFT IN STABLE CONDITION VIA [facility], VSS, NAD NOTED, PT LEFT VIA GURNEY, REPORT GIVEN TO AMBULANCE STAFF, ALL PPW WITH PT.
== END 2019-04-22 23:12 ==
LOC: ER 14:42
DX: S00.03XA Contusion of scalp, initial encounter (principal); I12.9 Hypertensive chronic kidney disease with stage 1 through stage 4 chronic kidney disease, or unspecified chronic kidney disease; N18.9 Chronic kidney disease, unspecified; F32.9 Major depressive disorder, single episode, unspecified; F41.9 Anxiety disorder, unspecified; G62.9 Polyneuropathy, unspecified; Z79.899 Other long term (current) drug therapy; W18.39XA Other fall on same level, initial encounter; Y93.89 Activity, other specified; Y92.89 Other specified places as the place of occurrence of the external cause; Y99.8 Other external cause status
CPT/HCPCS: 36415; 70450-TC; 71045-TC; 80048-TC; 81000-TC; 84484-TC; 85025-TC; 85730-TC

== ENCOUNTER 2019-10-03 13:45 | Emergency (ER) | payer MEDICARE, OTHER ==
[~2019-10-03] VITALS: Ht 167.6 cm; Wt 67.6 kg
[~2019-10-03 13:45] MED LIST changes: -FLUO-119 PO; +FLUO10CA27 PO
--- NOTE | 2019-10-03 13:50 | NUR ---
delia, from SNF, glf last night c/o r rib pain 9/10 ps, -ko, took percocet 1 tab LICENSED MARRIAGE AND FAMILY THERAPIST. Patient a/ox2-3, breathing even and unlabored, noted to be a little drowsy, kept comfortable, needs attended.
[2019-10-03] MEDS ORDERED: NALO25TA PO (13:55)
[2019-10-03] MEDS ORDERED: METR-147 PO (13:55)
[2019-10-03] MEDS ORDERED: ALBU18HF2 IH (13:55)
[2019-10-03] MEDS ORDERED: OXYB10TA2 PO (13:55)
[2019-10-03] MEDS ORDERED: FURO-144 PO (13:55)
[2019-10-03] MEDS ORDERED: ALPR0.255 PO (13:55)
[2019-10-03] MEDS ORDERED: AMOX1TAB15 PO (13:55)
--- NOTE | 2019-10-03 14:02 | NUR ---
PATIENT REFUSED TO CHANGE INTO A GOWN. KEPT COMFORTABLE.
--- NOTE | 2019-10-03 14:10 | NUR ---
SEEN AND EVALUATED BY DR. HENDERSON
--- NOTE | 2019-10-03 15:26 | NUR ---
SANJEEV ARCE TO [facility] ETA [id number], TRIP#[id number]
--- NOTE | 2019-10-03 18:18 | NUR ---
REPORT GIVEN TO CARE TRANSITION MANAGER. Patient discharged to [facility] in stable condition. Written and verbal after care instructions given. Patient verbalizes understanding of instruction.
[2019-10-03 18:21] VITALS: BP 108/53
--- NOTE | 2019-10-03 18:22 | NUR ---
CALLED [facility] FOR REPORT, UNABLE TO REACH THE FACILITY.
== END 2019-10-03 18:21 ==
LOC: ER 13:48
DX: M54.9 Dorsalgia, unspecified (principal); R51 Headache; G89.29 Other chronic pain; R07.81 Pleurodynia; I12.9 Hypertensive chronic kidney disease with stage 1 through stage 4 chronic kidney disease, or unspecified chronic kidney disease; N18.9 Chronic kidney disease, unspecified; Z79.899 Other long term (current) drug therapy; W18.39XA Other fall on same level, initial encounter; Y93.89 Activity, other specified; Y92.89 Other specified places as the place of occurrence of the external cause; Y99.8 Other external cause status
CPT/HCPCS: 71045-TC; 72170-TC

== ENCOUNTER 2019-10-11 16:07 | Emergency (ER) | payer MEDICARE, OTHER ==
[~2019-10-11] VITALS: Ht 167.6 cm; Wt 67.6 kg
[~2019-10-11 16:07] MED LIST changes: +ALBU18HF2 IH; +ALPR0.255 PO; +AMOX1TAB15 PO; +FURO-144 PO; +METR-147 PO; +NALO25TA PO; +OXYB10TA2 PO
--- NOTE | 2019-10-11 16:28 | NUR ---
PT BIB FROM [facility] "[facility] THAN [facility]" PER REPORT.PT IS AAOX4, COOPERATIVE, VSS, RBEATHING EVEN AND UNLABORED ON ROOM AIR W/ NAD NOTED. PT CONNECTED TO THE MONITOR. ACCDG TO PATIENT SHE WAS SENT HERE BECAUSE SHE WAS DIFFICULT TO AWAKE AT THE FACILITY.
[2019-10-11 16:49] LABS: BASOPHILS % (AUTO) 0.5 % (0.0-2.0); EOSINOPHILS % (AUTO) 0.7 % (0.0-6.0); HEMATOCRIT 35 % (33-45); HEMOGLOBIN 11.4 g/dL (11.5-14.8); LYMPHOCYTES # (AUTO) 0.6 /CMM (0.8-4.8); MEAN CORPUSCULAR HGB CONC 33 g/dl (31.0-36.0); MEAN CORPUSCULAR VOLUME 93 fL (82-100); MONOCYTES # (AUTO) 0.9 /CMM (0.1-1.30); MONOCYTES % (AUTO) 19.5 % (2.0-12.0); NEUTROPHILS # (AUTO) 3.1 /CMM (1.8-8.9); NEUTROPHILS % (AUTO) 66.3 % (43.0-81.0); PLATELET COUNT (AUTO) 155 /CMM (150-450); RED BLOOD CELL COUNT(AUTO) 3.78 MIL/uL (4.0-5.2); WHITE BLOOD COUNT (AUTO) 4.7 K/uL (4.3-11.0)
[2019-10-11 17:05] LABS: ALANINE AMINOTRANSFERASE 11 U/L (12-78); ALKALINE PHOSPHATASE 72 U/L (46-116); ASPARTATE AMINOTRANSFERASE 19 U/L (15-37); BILIRUBIN,DIRECT 0.1 mg/dL (0.0-0.2); BILIRUBIN,TOTAL 0.4 mg/dL (0.2-1.0); CALCIUM, SERUM 9.1 mg/dL (8.5-10.1); CARBON DIOXIDE 31 mmol/L (21-32); CHLORIDE 100 mmol/L (98-107); CREATININE 1.7 mg/dL (0.6-1.3); GLUCOSE 169 mg/dL (74-106); SODIUM SERUM 140 mmol/L (136-145); TOTAL PROTEIN, SERUM 6.7 g/dL (6.4-8.2); UREA NITROGEN, BLOOD 33 mg/dL (7-18)
--- NOTE | 2019-10-11 17:26 | NUR ---
urine collected and sent to lab
[2019-10-11 17:45] LABS: APPEARANCE,URINE Cloudy (CLEAR); BILIRUBIN,URINE Negative (NEGATIVE); BLOOD, URINE Small Ery/uL (NEGATIVE); COLOR,URINE Yellow (YELLOW); KETONES,URINE Negative (NEGATIVE); LEUKOCYTE ESTERASE ,URINE Large (NEGATIVE); NITRITE, URINE Negative (NEGATIVE); PROTEIN,URINE Negative (NEGATIVE); UGLUCOSE Negative (NEGATIVE); UROBILINOGEN,URINE 0.2 EU/dL (0.2)
[2019-10-11 17:59] LABS: BACTERIA,URINE 3+ /HPF (None Seen); SQUAMOUS EPITHELIAL CELL,UR Few /HPF (None Seen); WBC,URINE 81-100 /HPF (0-3)
[2019-10-11 18:00] LABS: BAND % (MANUAL) 2 % (0.0-5.0); NEUTROPHILS % (MANUAL) 67 (42-76)
[2019-10-11 18:01] LABS: LYMPHOCYTES % (MANUAL) 15 % (16-48); MONOCYTES % (MANUAL) 16 % (0-11.0)
[2019-10-11] MEDS ORDERED: POTASSIUM CHLORIDE 20 MEQ TAB.PRT.SR PO ONE ×2 (18:19→18:30)
[2019-10-11] MEDS ORDERED: CEPHALEXIN MONOHYDRATE 500 MG CAPSULE PO ONE ×2 (18:19→18:30)
--- NOTE | 2019-10-11 18:25 | NUR ---
XRAY AT BEDSIDE
--- NOTE | 2019-10-11 18:44 | NUR ---
CALLED TRANSPORT ETA IS 120 MINS PER ZORAIDA TRIP # [id number]
--- NOTE | 2019-10-11 19:12 | NUR ---
Patient is resting comfortably in bed with eyes closed. Easily aroused. VSS
--- NOTE | 2019-10-11 20:21 | NUR ---
CALLED [facility], WENT STRAIGHT TO VOICEMAIL
--- NOTE | 2019-10-11 20:23 | NUR ---
REPORT GIVEN TO [facility].
--- NOTE | 2019-10-11 20:23 | NUR ---
REPORT GIVEN TO EMS, PATIENT STABLE FOR TRANSPORT
--- NOTE | 2019-10-11 20:29 | NUR ---
Patient discharged to facility in stable condition. Written and verbal after care instructions given. Patient verbalizes understanding of instruction. IV removed. Catheter intact and site benign. Pressure and 4x4 applied to site. No bleeding noted.
[2019-10-11 20:32] VITALS: BP 122/78
== END 2019-10-11 20:33 ==
LOC: ER 16:07
DX: N39.0 Urinary tract infection, site not specified (principal); R41.82 Altered mental status, unspecified; G62.9 Polyneuropathy, unspecified; F32.9 Major depressive disorder, single episode, unspecified; F41.9 Anxiety disorder, unspecified; N18.9 Chronic kidney disease, unspecified; Z79.899 Other long term (current) drug therapy
CPT/HCPCS: 36415; 71045-TC; 80048-TC; 80076-TC; 81000-TC; 84484-TC; 85025-TC; 87086-TC; 87186-TC

== ENCOUNTER 2019-12-16 13:09 | Inpatient (IN) | payer MEDICARE, OTHER ==
[~2019-12-16] VITALS: Ht 167.6 cm; Wt 51.3 kg
[~2019-12-16 13:09] MED LIST changes: -OXYB10TA2 PO; +OXYB10TA30 PO; -OXYC-133 PO
--- NOTE | 2019-12-16 13:15 | NUR ---
ROMA FROM [facility] FOR WEIGHT LOSS, 20 LBS IN A MONTH, +WEAKNESS, PATIENT A/OX3, ON ROOM AIR SPO2 88%, PLACED ON O2 AT 3LPM VIA NC TO KEEP O2 SAT > 92%, PATIENT'S NEEDS ATTENDED. KEPT COMFORTABLE, CHANGED INTO GOWN.
[2019-12-16] MEDS ORDERED: IV NS 0.9% 1,000 ML BAG IV ONE (13:30)
[2019-12-16] MEDS ORDERED: ALBUTEROL FS 2.5 MG/3 ML VIAL.NEB NEB ONE (13:30)
[2019-12-16] MEDS ORDERED: ALBUTEROL FS 2.5 MG/3 ML VIAL.NEB ONE (13:34)
[2019-12-16] MEDS ORDERED: ARIP10TA54 SL (13:37)
[2019-12-16] MEDS ORDERED: OXYC-454 PO (13:37)
[2019-12-16] MEDS ORDERED: DIVA500T54 PO (13:37)
[2019-12-16 13:40] LABS: BASOPHILS % (AUTO) 0.3 % (0.0-2.0); EOSINOPHILS % (AUTO) 0.5 % (0.0-6.0); HEMATOCRIT 38 % (33-45); HEMOGLOBIN 12.5 g/dL (11.5-14.8); LYMPHOCYTES # (AUTO) 0.4 /CMM (0.8-4.8); LYMPHOCYTES % (AUTO) 10.8 % (20.0-44.0); MEAN CORPUSCULAR HGB CONC 33 g/dl (31.0-36.0); MEAN CORPUSCULAR VOLUME 95 fL (82-100); MONOCYTES # (AUTO) 0.6 /CMM (0.1-1.30); MONOCYTES % (AUTO) 15.6 % (2.0-12.0); NEUTROPHILS # (AUTO) 2.9 /CMM (1.8-8.9); NEUTROPHILS % (AUTO) 72.8 % (43.0-81.0); PLATELET COUNT (AUTO) 148 /CMM (150-450); RED BLOOD CELL COUNT(AUTO) 4.04 MIL/uL (4.0-5.2)
[2019-12-16 13:47] LABS: CALCIUM, SERUM 9.5 mg/dL (8.5-10.1); CARBON DIOXIDE 33 mmol/L (21-32); CHLORIDE 103 mmol/L (98-107); CREATININE 1.3 mg/dL (0.6-1.3); GLUCOSE 125 mg/dL (74-106); POTASSIUM 3.1 mmol/L (3.5-5.1); SODIUM SERUM 146 mmol/L (136-145); UREA NITROGEN, BLOOD 36 mg/dL (7-18)
[2019-12-16 14:00] LABS: ALANINE AMINOTRANSFERASE 10 U/L (12-78); ALBUMIN 2.7 g/dL (3.4-5.0); ALKALINE PHOSPHATASE 85 U/L (46-116); ASPARTATE AMINOTRANSFERASE 11 U/L (15-37); B-TYPE NATRIURETIC PEPTIDE 2089 PG/ML (0-125); BILIRUBIN,DIRECT 0.2 mg/dL (0.0-0.2); BILIRUBIN,TOTAL 0.5 mg/dL (0.2-1.0); TOTAL PROTEIN, SERUM 6.8 g/dL (6.4-8.2)
[2019-12-16 14:11] LABS: BILIRUBIN,URINE Negative (NEGATIVE); BLOOD, URINE Trace-intact Ery/uL (NEGATIVE); KETONES,URINE Negative (NEGATIVE); LEUKOCYTE ESTERASE ,URINE Moderate (NEGATIVE); NITRITE, URINE Negative (NEGATIVE); PROTEIN,URINE Negative (NEGATIVE); UGLUCOSE Negative (NEGATIVE); UROBILINOGEN,URINE 0.2 EU/dL (0.2)
[2019-12-16 14:12] LABS: APPEARANCE,URINE HAZY (CLEAR); COLOR,URINE Light yellow (YELLOW)
[2019-12-16 14:29] LABS: BAND % (MANUAL) 2 % (0.0-5.0); NEUTROPHILS % (MANUAL) 71 (42-76)
[2019-12-16 14:30] LABS: LYMPHOCYTES % (MANUAL) 13 % (16-48); MONOCYTES % (MANUAL) 14 % (0-11.0)
--- NOTE | 2019-12-16 14:35 | NUR ---
turned in move sheet, called for tele-bed
--- NOTE | 2019-12-16 14:52 | NUR ---
CALLED DR MARTÍNEZ OFFICE, OFFICE STAFFED PAGED DOC
--- NOTE | 2019-12-16 14:54 | NUR ---
DR HENDERSON SPOKE WITH DR MARTÍNEZ
[2019-12-16] MEDS ORDERED: PIPERACILLIN /TAZOBACTAM 3.375 G in IV D5W 50 ML IV ONE (15:00)
[2019-12-16] MEDS ORDERED: PIPERACILLIN /TAZOBACTAM 3.375 G VIAL IV ONE (15:00)
[2019-12-16 15:23] LABS: BACTERIA,URINE Few /HPF (None Seen); SQUAMOUS EPITHELIAL CELL,UR Few /HPF (None Seen)
--- NOTE | 2019-12-16 16:17 | NUR ---
TELE-BED 324-2
[2019-12-16] MEDS ORDERED: Z GUARD REMEDY 2 OZ OINT TP PRN (16:30)
[2019-12-16] MEDS ORDERED: MAGNESIUM HYDROXIDE 30 ML UDC PO PRN (16:30)
[2019-12-16] MEDS ORDERED: MAG HYDROX/AL HYDROX/SIMETH 30 ML UDC PO PRN (16:30)
[2019-12-16] MEDS ORDERED: MORPHINE SULFATE INJ 2 MG/ML DISP.SYRIN IV PRN (16:30)
[2019-12-16] MEDS ORDERED: ONDANSETRON HCL/PF 4 MG/2 ML VIAL IVP PRN (16:30)
[2019-12-16] MEDS ORDERED: ZOLPIDEM TARTRATE 5 MG TABLET PO PRN (16:30)
[2019-12-16] MEDS ORDERED: POTASSIUM CHLORIDE 20 MEQ TAB.PRT.SR PO ONE (16:30)
[2019-12-16] MEDS ORDERED: ACETAMINOPHEN 325 MG TABLET PO PRN (16:30)
--- NOTE | 2019-12-16 16:44 | NUR ---
REPORT GIVEN TO GEOVANNI Shetty
--- NOTE | 2019-12-16 16:56 | NUR ---
PATIENT TRANSFERRED TO ROOM 324-2 VIA ACLS PROTOCOL, PATIENT IN STABLE CONDITION, EDNORSED TO GEOVANNI Shetty
[2019-12-16] MEDS ORDERED: ALBUTEROL HALF STRENGTH 1.25 MG/3 ML VIAL.NEB NEB PRN (17:00)
[2019-12-16] MEDS ORDERED: IPRATROPIUM NEB FS 0.5 MG/2.5 ML AMPUL.NEB NEB PRN (17:00)
[2019-12-16] MEDS ORDERED: FEE PK DOSING 1 MIN EA MC ONE (17:20)
[2019-12-16 17:30] VITALS: BP 105/57
--- NOTE | 2019-12-16 17:30 | NUR ---
BEATER ROOM HELPERROUNDSMAN NOTES ADMITTED PT FROM ER WITH DX OF CHF,UTI AND PNA.PT IS ALERT AND ORIENTED X3.VERBALLY RESPONSIVE. ON BEDREST.WITH O2 AT 4L/MIN VIA NC WITH O2 SAT 91%. ON WT LOSS OF 20 POUNDS IN 1 MONTH WITH NO APPETITE COUGHING FOR WITH PHLEGM FOR 6 WKS. WITH OCCASIONAL COUGHING NOTED.ON TELE WITH SR HR 76. FOR INFECTIOUS DISEASE AND CARDIAC CONSULT. DENIES ANY DISTRESS OR DISCOMFORT AT THIS TIME SAYING SHE IS VERY HUNGRY,SERVED DINNER AND WILL ENDORSE TO SAILING OFFICER FOR SKIN ASSESSMENT.WILL MONITOR.CALL LIGHT PLACED WITHIN REACH.
[2019-12-16] MEDS ORDERED: PIPERACILLIN /TAZOBACTAM 3.375 G in IV D5W 50 ML IV SCH (18:00)
[2019-12-16] MEDS ORDERED: VANCOMYCIN 1 GM in IV D5W 250 ML IV ONE (18:00)
[2019-12-16] MEDS: GABAPENTIN 100 MG CAPSULE PO SCH (18:26)
[2019-12-16] MEDS: FUROSEMIDE 40 MG/4 ML VIAL IV SCH (18:26)
[2019-12-16] MEDS ORDERED: ALBUTEROL HALF STRENGTH 1.25 MG/3 ML VIAL.NEB NEB SCH (19:30)
[2019-12-16] MEDS ORDERED: IPRATROPIUM NEB FS 0.5 MG/2.5 ML AMPUL.NEB NEB SCH (19:30)
[2019-12-16 20:00] VITALS: BP 99/55
--- NOTE | 2019-12-16 20:22 | NUR ---
SURGICAL ONCOLOGIST RECEIVE PT AWAKE EATING DINNER A/O X 3 PERIOD OF FORGETFULNESS, STABLE AND NOT IN DISTRESS, ON CARDIAC MONITORING SR 78. SAFETY MEASURES AT ALL TIMES. WILL CONTINUE TO MONITOR,
[2019-12-16 20:29] VITALS: BP 99/55
[2019-12-16] MEDS: PIPERACILLIN /TAZOBACTAM 3.375 G in IV D5W 100 ML IV SCH (21:21)
[2019-12-16] MEDS: DIVALPROEX SODIUM 500 MG TABLET.DR PO SCH (21:34)
[2019-12-16] MEDS: ENOXAPARIN SODIUM 40 MG/0.4 ML DISP.SYRIN SQ SCH (21:39)
[2019-12-17] VITALS (7 sets, daily range): BP systolic 90–112; BP diastolic 46–68
[2019-12-17] MEDS: PIPERACILLIN /TAZOBACTAM 3.375 G in IV D5W 100 ML IV SCH ×3 (04:02→21:08)
[2019-12-17] MEDS: HYDROCODONE/APAP 5/325MG 1 EACH TABLET PO PRN ×3 (04:22→21:08)
[2019-12-17] MEDS: VANCOMYCIN 500 MG in IV D5W 100 ML IV SCH ×2 (05:18→18:19)
--- NOTE | 2019-12-17 06:20 | NUR ---
EVAPORATOR HELPER NO SIGNIFICANT CHANGES, PT SLEPT WELL. MONITORED FOR PAIN NO C/O CHEST PAIN. SEIZURE PRECAUTION AT ALL TIMES. IV SITES NO S/S OF INFILTRATION, NO SEIZURE ACTIVITY STABLE AND NOT IN DISTRESS,NEEDS ATTENDED AND ANTICIPATED. KEPT CLEAN, DRY AND COMFORTABLE. AM CARE RENDERED. PT INDEPENDENT WITH REPOSITION. ON CARDIAC MONITORING. SR 72 HR WITH PVC'S. SAFETY MEASURES AT ALL TIMES. WILL ENDORSE POC TO NEXT SHIFT.
[2019-12-17 06:50] LABS: BASOPHILS % (AUTO) 0.3 % (0.0-2.0); EOSINOPHILS % (AUTO) 1.4 % (0.0-6.0); HEMATOCRIT 34 % (33-45); HEMOGLOBIN 11.5 g/dL (11.5-14.8); LYMPHOCYTES # (AUTO) 0.7 /CMM (0.8-4.8); LYMPHOCYTES % (AUTO) 21.3 % (20.0-44.0); MEAN CORPUSCULAR HGB CONC 34 g/dl (31.0-36.0); MEAN CORPUSCULAR VOLUME 93 fL (82-100); MONOCYTES # (AUTO) 0.9 /CMM (0.1-1.30); MONOCYTES % (AUTO) 26.2 % (2.0-12.0); NEUTROPHILS # (AUTO) 1.7 /CMM (1.8-8.9); NEUTROPHILS % (AUTO) 50.8 % (43.0-81.0); PLATELET COUNT (AUTO) 132 /CMM (150-450); RED BLOOD CELL COUNT(AUTO) 3.69 MIL/uL (4.0-5.2); WHITE BLOOD COUNT (AUTO) 3.3 K/uL (4.3-11.0)
--- NOTE | 2019-12-17 08:00 | NUR ---
TEACHING SUPERVISOR AM NOTES PT IS ALERT AND ORIENTED X3.VERBALLY RESPONSIVE. ON BEDREST.WITH O2 AT 3L/MIN VIA NC WITH O2 SAT 98%. WITH OCCASIONAL MOIST COUGHING NOTED.ON TELE WITH SR HR 76. AWAITING FOR INFECTIOUS DISEASE AND CARDIAC CONSULT. DENIES ANY DISTRESS OR DISCOMFORT AT THIS TIME.WILL MONITOR.CALL LIGHT PLACED WITHIN REACH.
[2019-12-17 08:25] LABS: CHOLESTEROL 131 mg/dL (<200); HDL CHOLESTEROL 40 mg/dL (40-60); LDL 79 mg/dL (0-99); THYROID STIMULATING HORMONE 1.213 uIU/mL (0.358-3.74); TRIGLYCERIDES 79 mg/dL (30-150)
[2019-12-17] MEDS: OXYBUTYNIN CHLORIDE 5 MG TABLET PO SCH (08:27)
[2019-12-17] MEDS: GABAPENTIN 100 MG CAPSULE PO SCH ×3 (08:27→17:00)
[2019-12-17] MEDS: FUROSEMIDE 40 MG/4 ML VIAL IV SCH (08:27)
[2019-12-17] MEDS: LEVOTHYROXINE SODIUM 75 MCG TABLET PO SCH (08:27)
[2019-12-17] MEDS: ARIPIPRAZOLE 5 MG TABLET PO SCH (08:27)
[2019-12-17] MEDS: Fluoxetine 10 mg capsule PO SCH (08:27)
[2019-12-17 09:09] LABS: MAGNESIUM 1.3 mg/dL (1.8-2.4); PHOSPHORUS 3.2 mg/dL (2.5-4.9)
[2019-12-17 09:13] LABS: CARBON DIOXIDE 32 mmol/L (21-32); CHLORIDE 101 mmol/L (98-107); POTASSIUM 3.1 mmol/L (3.5-5.1); SODIUM SERUM 141 mmol/L (136-145)
[2019-12-17 09:14] LABS: ALKALINE PHOSPHATASE 65 U/L (46-116); ASPARTATE AMINOTRANSFERASE 9 U/L (15-37); BILIRUBIN,TOTAL 0.5 mg/dL (0.2-1.0); CALCIUM, SERUM 8.5 mg/dL (8.5-10.1); CREATININE 1.2 mg/dL (0.6-1.3); GLUCOSE 99 mg/dL (74-106); UREA NITROGEN, BLOOD 26 mg/dL (7-18)
[2019-12-17 09:15] LABS: ALANINE AMINOTRANSFERASE 7 U/L (12-78); ALBUMIN 2.1 g/dL (3.4-5.0); TOTAL PROTEIN, SERUM 5.9 g/dL (6.4-8.2)
[2019-12-17] MEDS: Magnesium 1GM/D5W 100ML PREMIX 100 ML IV SCH ×2 (11:28→16:53)
[2019-12-17] MEDS ORDERED: POTASSIUM CHLORIDE 20 MEQ TAB.PRT.SR PO ONE (11:30)
--- NOTE | 2019-12-17 17:10 | NUR ---
PT PULLED OUT HER IV H/L IN HER RT HAND SAYING IT HURTS AND REFUSED TO HAVE A SECOND IV HEPLOCK REINSERTED INSPITE OF EXPLAINING ITS RISKS AND BENEFITS,PT INSISTS TO REFUSE.
--- NOTE | 2019-12-17 18:15 | NUR ---
SEEN BY INFORMATION SERVICES MANAGER,DR ROSS WITH ORDERS TO DC TELE.
--- NOTE | 2019-12-17 19:20 | NUR ---
RECEIVED PT IN BED A/OX3 WATCHING TV STABLE AND NOT IN DISTRESS. SAFETY MEASURES AT ALL TIMES. WILL CONT TO MONITOR.
[2019-12-17] MEDS: DIVALPROEX SODIUM 500 MG TABLET.DR PO SCH ×2 (21:07→21:16)
[2019-12-17] MEDS: ENOXAPARIN SODIUM 40 MG/0.4 ML DISP.SYRIN SQ SCH (21:07)
--- NOTE | 2019-12-17 21:16 | NUR ---
PT REFUSED DEPAKOTE 500 MG PO DUE DURING HS DESPITE EXPLAINING RISKS AND BENEFITS OFFERED 3 TIMES PT REFUSED. PT VERBALIZED "I REFUSED DEPAKOTE I DONT WANT IT".
[2019-12-18] MEDS: HYDROCODONE/APAP 5/325MG 1 EACH TABLET PO PRN ×3 (01:32→15:56)
[2019-12-18] MEDS: PIPERACILLIN /TAZOBACTAM 3.375 G in IV D5W 100 ML IV SCH ×3 (04:46→21:06)
--- NOTE | 2019-12-18 05:00 | NUR ---
CALLED LAB FOR VANCO TROUGH 0500 SPOKE TO HEIDI AWAITING BUYER AGENT
--- NOTE | 2019-12-18 05:29 | NUR ---
CALLED LABORATORY FOR FF UP VANCO TROUGH PER OSVALDO SHE WILL TEXT THE STATISTICAL METHODS TEACHER
--- NOTE | 2019-12-18 06:19 | NUR ---
MS RN SPOKE TO THE WASHCOAT WIPER CURRENTLY IN THE FLOOR REGARDING VANCO TROUGH DRAW. PER WASHCOAT WIPER HE WILL DRAW IT JUST NOW.
--- NOTE | 2019-12-18 06:24 | NUR ---
UNABLE TO INFUSE VANCOMYCIN IVPB DUE TO AWAITING VANCO TROUGH RESULT WILL ENDORSE
--- NOTE | 2019-12-18 06:38 | NUR ---
MS RN PT ON 3LPM VIA NC 94%. STABLE AND NOT IN DISTRESS, OFFLOAD HEELS AND ELBOWS AT ALL TIMES. SLEPT WELL. SEIZURE PRECAUTION AT ALL TIMES. NO SEIZURE ACTIVITY. NEEDS ATTENDED AND ANTICIPATED. KEPT CLEAN, DRY AND COMFORTABLE. AM CARE RENDERED. MONITORED FOR PAIN. SAFETY MEASURES AT ALL TIMES. WILL ENDORSE POC TO NEXT SHIFT.
--- NOTE | 2019-12-18 06:53 | NUR ---
UNABLE TO INFUSE VANCOMYCIN IVPB 0600 DUE TO AWAITING VANCO TROUGH RESULT WILL ENDORSE
[2019-12-18 07:19] LABS: BASOPHILS % (AUTO) 0.3 % (0.0-2.0); EOSINOPHILS % (AUTO) 1.6 % (0.0-6.0); HEMATOCRIT 37 % (33-45); HEMOGLOBIN 12.2 g/dL (11.5-14.8); LYMPHOCYTES # (AUTO) 0.7 /CMM (0.8-4.8); LYMPHOCYTES % (AUTO) 17.3 % (20.0-44.0); MEAN CORPUSCULAR HGB CONC 33 g/dl (31.0-36.0); MEAN CORPUSCULAR VOLUME 94 fL (82-100); MONOCYTES # (AUTO) 0.9 /CMM (0.1-1.30); MONOCYTES % (AUTO) 24.5 % (2.0-12.0); NEUTROPHILS # (AUTO) 2.1 /CMM (1.8-8.9); NEUTROPHILS % (AUTO) 56.3 % (43.0-81.0); PLATELET COUNT (AUTO) 138 /CMM (150-450); RED BLOOD CELL COUNT(AUTO) 3.91 MIL/uL (4.0-5.2); WHITE BLOOD COUNT (AUTO) 3.8 K/uL (4.3-11.0)
--- NOTE | 2019-12-18 07:30 | NUR ---
MS RN OPENING NOTES RECEIVED PT IN BED, AWAKE, A/O X3-4. PT TOLERATING RA, WITH NO ACUTE RESPIRATORY DISTRESS NOTED. PT STATED PAIN OF 9/10 AND REQUESTED FOR NORCO. PT DENIES ANY CONCERNS OR QUESTION AT THIS TIME. PT AWARE OF URINE SPECIMEN NEEDED TO BE COLLECTED. PT ALSO AWARE OF VANCOMYCIN THROUGH AND IV ANTIBIOTICS WILL BE ADMINISTERED LATE DUE TO WAITING OF RESULT. PIVS TO LAC G20 AND LEFT HAND G24 SL, BOTH FLUSHED WITH NS, INTACT AND OPERATIONAL. PT COMFORTABLE IN BED AT THIS TIME. PT'S BED IN LOWEST, LOCKED POSITION WITH SRX3. CALL LIGHT KEPT WITHIN REACH. WILL CONTINUE PLAN OF CARE.
[2019-12-18] MEDS: LEVOTHYROXINE SODIUM 75 MCG TABLET PO SCH (07:45)
[2019-12-18 08:00] VITALS: BP 136/62
--- NOTE | 2019-12-18 08:00 | NUR ---
MS RN NOTES SEEN AND EVALUATED BY HOSPITALIST/DT, NO ORDERD NOTED.PER DT PT MAY POSSIBLE TO GO HOME TOMORROW. WILL CONTINUE TO MONITOR PT.
[2019-12-18 08:12] LABS: LYMPHOCYTES % (MANUAL) 15 % (16-48); MONOCYTES % (MANUAL) 13 % (0-11.0)
[2019-12-18 08:13] LABS: EOSINOPHILS % (MANUAL) 1 % (0-4); NEUTROPHILS % (MANUAL) 71 (42-76)
[2019-12-18] MEDS: ARIPIPRAZOLE 5 MG TABLET PO SCH (08:31)
[2019-12-18] MEDS: FUROSEMIDE 40 MG/4 ML VIAL IV SCH (08:31)
[2019-12-18] MEDS: Fluoxetine 10 mg capsule PO SCH (08:31)
[2019-12-18] MEDS: OXYBUTYNIN CHLORIDE 5 MG TABLET PO SCH (08:31)
[2019-12-18] MEDS: GABAPENTIN 100 MG CAPSULE PO SCH ×3 (08:32→17:11)
[2019-12-18] MEDS: MUPIROCIN OINT 2% 22 GM TUBE SCH ×2 (08:33→21:09)
[2019-12-18] MEDS: VANCOMYCIN 500 MG in IV D5W 100 ML IV SCH ×2 (08:35→17:12)
[2019-12-18 09:27] LABS: CALCIUM, SERUM 9.2 mg/dL (8.5-10.1); CREATININE 1.2 mg/dL (0.6-1.3); MAGNESIUM 1.9 mg/dL (1.8-2.4); PHOSPHORUS 2.9 mg/dL (2.5-4.9)
[2019-12-18 09:43] LABS: POTASSIUM 3.5 mmol/L (3.5-5.1)
--- NOTE | 2019-12-18 15:59 | NUR ---
MS RN NOTES PT REPORTED 7/10 GENERALIZED PAIN AND REQUESTING FOR NORCO PRN, GIVEN TO PT ORDERED.
[2019-12-18 16:00] VITALS: BP 101/70
--- NOTE | 2019-12-18 18:42 | NUR ---
MS RN CLOSING NOTES PT IN BED, AWAKE, A/O X3-4. FAMILY PRESENT AT BEDSIDE. PT TOLERATING RA, WITH NO ACUTE RESPIRATORY DISTRESS NOTED. PT DENIES ANY PAIN OR DISCOMFORT AT THIS TIME. PIVS TO LAC G20 AND LEFT HAND G24 SL, BOTH FLUSHED WITH NS, INTACT AND OPERATIONAL. ON GOING IV VANCO ANTIBIOTIC TO LAC, INTACT AND FLUID INFUSING WELL. ALL NEEDS AND CARE ATTENDED. PT COMFORTABLE IN BED. PT'S BED IN LOWEST, LOCKED POSITION WITH SRX3. CALL LIGHT KEPT WITHIN REACH. WILL ENDORSE TO INCOMING NIGHT NURSE FOR RIOS.
--- NOTE | 2019-12-18 19:41 | NUR ---
RN NOTES RECEIVED PATIENT AWAKE, ALERT ORIENTEDX3, RESTING COMFORTABLY, NO SIGNS OF ACUTE RESPIRATORY DISTRESS NOTED, DENIES PAIN OR DISCOMFORT AT THIS TIME, KEEP CLEAN AND DRY, SAFETY MEASURES INPLACE, ASPIRATION PRECAUTION EMPHASIZED, ISOLATION PRECAUTION MAINTAINED. ALL NEEDS ANTICIPATED, WILL CONTINUE TO MONITOR ACCORDINGLY.
[2019-12-18 20:00] VITALS: BP 99/65
[2019-12-18 20:36] VITALS: BP 99/65
[2019-12-18] MEDS: ENOXAPARIN SODIUM 40 MG/0.4 ML DISP.SYRIN SQ SCH (21:08)
[2019-12-18] MEDS: DIVALPROEX SODIUM 500 MG TABLET.DR PO SCH (21:59)
--- NOTE | 2019-12-19 02:32 | NUR ---
RN NOTES ALL NEEDS ATTENDED AND MET, RESTING AT THIS TIME, REPOSITIONED FOR COMFORT, NO SIGNS OF ACUTE DISTRESS. SAFETY MEASURES IN PLACE, ASPIRATION PRECAUTION EMPHASIZED. REPORT GIVEN TO PAZ BARKLEY FOR CONTINUITY OF CARE.
--- NOTE | 2019-12-19 03:28 | NUR ---
ms digital business analyst notes seen pt in bed resting with eyes closed but arouses to touch, not in any acute distress noted. kept her warm and comfortable at all times. place call light at reach. will continue monitoring.
[2019-12-19] MEDS: PIPERACILLIN /TAZOBACTAM 3.375 G in IV D5W 100 ML IV SCH ×3 (04:55→21:21)
[2019-12-19] MEDS: HYDROCODONE/APAP 5/325MG 1 EACH TABLET PO PRN ×4 (04:58→21:26)
--- NOTE | 2019-12-19 04:58 | NUR ---
ms ally notes pt called and complaining of generalized pain, 6/10, norco tablet given as ordered. will continue monitoring.
--- NOTE | 2019-12-19 06:05 | NUR ---
ms ally notes checked pt she's awake and saw eating her foods at the bedside. she said she feel better after pain medication. will continue monitoring.
[2019-12-19] MEDS: VANCOMYCIN 500 MG in IV D5W 100 ML IV SCH ×2 (06:23→17:11)
--- NOTE | 2019-12-19 07:15 | NUR ---
MS RN NOTES RECEIVED PATIENT IN BED ASLEEP, AROUSABLE TO VERBAL AND TACTILE STIMULI. HOB ELEVATED. NO S/S OF RESPIRATORY DISTRESS. LEFT AC # 20 SL AND LEFT HAND SL #24 INTACT AND PATENT. BED IN LOWEST POSITION, LOCKED. BED ALARM ON. CALL LIGHT WITHIN REACH. ABLE TO VERBALIZE NEEDS.
--- NOTE | 2019-12-19 07:29 | NUR ---
ms service order dispatcher chief closing notes pt sleeping comfortably at this time with antibiotic still infusing. Stable samson the night and slept well. all due meds given and all needs met. kept her warm and comfortable at all times. place call light at reach. endorse to am nurse .
[2019-12-19 08:00] VITALS: BP 101/61
[2019-12-19] MEDS: LEVOTHYROXINE SODIUM 75 MCG TABLET PO SCH (08:22)
[2019-12-19] MEDS: FUROSEMIDE 40 MG/4 ML VIAL IV SCH (08:48)
[2019-12-19] MEDS: ARIPIPRAZOLE 5 MG TABLET PO SCH (08:48)
[2019-12-19] MEDS: OXYBUTYNIN CHLORIDE 5 MG TABLET PO SCH (08:48)
[2019-12-19] MEDS: GABAPENTIN 100 MG CAPSULE PO SCH ×3 (08:48→17:11)
[2019-12-19] MEDS: Fluoxetine 10 mg capsule PO SCH (08:48)
[2019-12-19] MEDS: MUPIROCIN OINT 2% 22 GM TUBE SCH ×2 (08:49→21:13)
[2019-12-19 09:19] LABS: CALCIUM, SERUM 9.2 mg/dL (8.5-10.1); CREATININE 1.1 mg/dL (0.6-1.3); POTASSIUM 3.5 mmol/L (3.5-5.1)
--- NOTE | 2019-12-19 10:21 | NUR ---
WOUND CARE CONSULT: PT PRESENTS WITH VERY BONY SACRAL AREA WITH BLANCHABLE REDNESS AND SOME DISCOLORATION TO BUTTOCKS SKIN, PRESENT ON ADMISSION. PT IS INCONTINENT. RECOMMENDATIONS MADE FOR SKIN PROTECTION. DISCUSSED WITH NURSING STAFF. WILL SEE PRN. COONEY IN AGREEMENT WITH PLAN OF CARE. CURRENT ASHER SCORE IS 14. Addendum: 12/19/19 at 1024 by RONALDO WORTHY WNDNU Amended: Links added.
[2019-12-19 16:00] VITALS: BP 98/66
--- NOTE | 2019-12-19 19:15 | NUR ---
MS RN NOTES: RECEIVED PATIENT Patient in bed, A/O x4. Tolerating room air, denies SOB. Appears anxious to get pain medication, received PRN [place] at 1711 per report. Pain scale, pain management discussed with patient, verbalized understanding. Contact isolation, PPE utilized. Maintained safety.
--- NOTE | 2019-12-19 19:29 | NUR ---
MS RN NOTES PATIENT RESTING COMFORTABLY IN BED WATCHING TV. HOB ELEVATED. NO SOB. DENIES ANY C/O PAIN NOR DISCOMFORT AT THIS TIME. LEFT AC # 20 SL AND LEFT HAND SL #24 INTACT AND PATENT. BED IN LOWEST POSITION, LOCKED. BED ALARM ON. CALL LIGHT WITHIN REACH. ABLE TO VERBALIZE NEEDS. IN NO APPARENT DISTRESS. BED MOBILITY INDEPENDENT.
[2019-12-19 20:00] VITALS: BP 105/64
[2019-12-19 20:06] VITALS: BP 105/64
[2019-12-19] MEDS: DIVALPROEX SODIUM 500 MG TABLET.DR PO SCH (21:25)
--- NOTE | 2019-12-19 21:26 | NUR ---
MS RN NOTES: PAIN MEDICATION Patient c/o lower back pain 04/27, non radiating, denies SOB. Indication and possible side effect provided, PRN [place] given, will reassess.
[2019-12-19] MEDS: ENOXAPARIN SODIUM 40 MG/0.4 ML DISP.SYRIN SQ SCH (21:28)
--- NOTE | 2019-12-19 21:28 | NUR ---
RN NOTES: ANTICOAGULANT H&H Plt level reviewed, no schedule procedure. No s/s of bleeding. Reviewed and co-signed with EHSAN Falk. Lovenox injection given.
--- NOTE | 2019-12-19 22:31 | NUR ---
MS RN NOTES: PAIN REASSESSMENT Patient in bed reports pain level 2/10 after PRN [place], pain medication effective.
[2019-12-20] MEDS: HYDROCODONE/APAP 5/325MG 1 EACH TABLET PO PRN (01:03)
--- NOTE | 2019-12-20 01:04 | NUR ---
MS RN NOTES: PAIN MEDICATION Patient c/o lower back pain 04/27, non radiating, denies SOB. Indication and possible side effect reviewed with patient, PRN [place] given, will reassess.
--- NOTE | 2019-12-20 02:05 | NUR ---
MS RN NOTES: PAIN REASSESSMENT Patient in bed reports pain level 2/10 after PRN [place], pain medication effective.
[2019-12-20] MEDS: PIPERACILLIN /TAZOBACTAM 3.375 G in IV D5W 100 ML IV SCH ×2 (05:21→13:26)
--- NOTE | 2019-12-20 06:23 | NUR ---
MS RN NOTES: END OF SHIFT REPORT Patient in bed, tolerating room air, denies SOB. IV antibiotic as scheduled, afebrile overnight. Lower back pain managed with PRN [place], VSS, denies nausea no vomiting. Contact isolation, PPE utilized.
[2019-12-20 06:41] LABS: BASOPHILS % (AUTO) 0.4 % (0.0-2.0); EOSINOPHILS % (AUTO) 1.1 % (0.0-6.0); HEMATOCRIT 38 % (33-45); HEMOGLOBIN 12.5 g/dL (11.5-14.8); LYMPHOCYTES % (AUTO) 26.2 % (20.0-44.0); MEAN CORPUSCULAR HGB CONC 33 g/dl (31.0-36.0); MEAN CORPUSCULAR VOLUME 94 fL (82-100); MONOCYTES % (AUTO) 24.9 % (2.0-12.0); NEUTROPHILS # (AUTO) 1.9 /CMM (1.8-8.9); NEUTROPHILS % (AUTO) 47.4 % (43.0-81.0); PLATELET COUNT (AUTO) 145 /CMM (150-450); RED BLOOD CELL COUNT(AUTO) 4.06 MIL/uL (4.0-5.2); WHITE BLOOD COUNT (AUTO) 3.9 K/uL (4.3-11.0)
[2019-12-20 06:48] LABS: CREATININE 1.2 mg/dL (0.6-1.3); MAGNESIUM 1.6 mg/dL (1.8-2.4); POTASSIUM 3.2 mmol/L (3.5-5.1)
[2019-12-20 07:33] LABS: LYMPHOCYTES % (MANUAL) 30 % (16-48); MONOCYTES % (MANUAL) 13 % (0-11.0); NEUTROPHILS % (MANUAL) 55 (42-76); REACTIVE LYMPHOCYTES 2 % (0-0)
[2019-12-20 08:00] VITALS: BP 108/67
--- NOTE | 2019-12-20 08:00 | NUR ---
RN NOTES RECEIVED PATIENT IN THE ROOM A/OX3, NO ACUTE RESPIRATORY DISTRESS. PATIENT MRSA OF NARES ISOLATION. REFUSED PAIN, V/S STABLE. ADMINISTERED SCHEDULED MEDICATION, TURN AND REPOSTION SELF IN THE BED. INFUSING ZOSYN 25 ML/HR ON LEFT AC AREA INTACT. CALL LIGHT WITHIN TO REACH. INCONTINENT OF BOWEL/BLADDER. CONTINUED MONITORING.
[2019-12-20] MEDS ORDERED: Magnesium 1GM/D5W 100ML PREMIX 100 ML IV ONE (08:30)
[2019-12-20] MEDS ORDERED: POTASSIUM CHLORIDE 20 MEQ TAB.PRT.SR PO ONE (08:30)
[2019-12-20] MEDS ORDERED: FUROSEMIDE 40 MG TABLET PO SCH (09:00)
[2019-12-20] MEDS: OXYBUTYNIN CHLORIDE 5 MG TABLET PO SCH (09:23)
[2019-12-20] MEDS: LEVOTHYROXINE SODIUM 75 MCG TABLET PO SCH (09:23)
[2019-12-20] MEDS: GABAPENTIN 100 MG CAPSULE PO SCH ×3 (09:24→17:31)
[2019-12-20] MEDS: ARIPIPRAZOLE 5 MG TABLET PO SCH (09:24)
[2019-12-20] MEDS: Fluoxetine 10 mg capsule PO SCH (09:24)
[2019-12-20] MEDS: MUPIROCIN OINT 2% 22 GM TUBE SCH (09:49)
[2019-12-20] MEDS ORDERED: ACET325T53 PO (12:07)
[2019-12-20] MEDS ORDERED: ALBU1.25 NEB (12:07)
[2019-12-20] MEDS ORDERED: FURO40TA5 PO (12:07)
[2019-12-20] MEDS ORDERED: PIPE3.379 IV (12:07)
[2019-12-20] MEDS ORDERED: LORA-258 PO (12:07)
[2019-12-20] MEDS ORDERED: ZOLP5TAB2 PO (12:07)
[2019-12-20] MEDS ORDERED: MAG30ORA PO (12:07)
[2019-12-20] MEDS ORDERED: LACT-54 PO (12:07)
[2019-12-20] MEDS ORDERED: MUPI22OI7 (12:07)
[2019-12-20] MEDS ORDERED: IPRA0.2S9 NEB (12:07)
[2019-12-20] MEDS ORDERED: ENOX40DI SQ (12:07)
--- NOTE | 2019-12-20 12:23 | NUR ---
RN NOTES PER MD MARTÍNEZ PATIENT WILL DISCHARGE TO THE SNF. CONTINUED ALL MEDICATION.
[2019-12-20 16:00] VITALS: BP 108/73
[2019-12-20] MEDS ORDERED: ENSURE ENLIVE CHOC 237 ML CAN PO SCH (17:00)
--- NOTE | 2019-12-20 18:00 | NUR ---
LINK TRAINER MAINTENANCE MAN NOTES PATIENT DISCHARGE AT THIS TIME GOING SNF. PATIENT A/O X3, STABLE NO ACUTE RESPIRATORY DISTRESS, IV ACCESS LEFT AC INTACT, ADMINISTERED SCHEDULED MEDICATION. MED RECONCILIATION AND DISCHARGE ORDER REVIEWED AND EXPLAINED TO PATIENT. REPORT GIVEN SNF RN. RN VERBALIZED UNDERSTANDING. BELONGING WITH THE PATIENT. PATIENT WILL FOLLOW Dr MARTÍNEZ AT SNF. PATIENT REFUSED SIGN PAPERWORK, PICTURE TAKEN. PATIENT TELEHEALTH NURSE EDUCATOR BY AMBULANCE.
== END 2019-12-20 17:45 | DRG 871 ==
LOC: ER 13:15 → TELE 16:23 → MED 12-17 18:40
PROVIDERS: ADMIT Nurse Practitioner Acute Care; ATTEND Legal Medicine
DX: A41.9 Sepsis, unspecified organism (principal); J15.9 Unspecified bacterial pneumonia; I50.33 Acute on chronic diastolic (congestive) heart failure; I13.0 Hypertensive heart and chronic kidney disease with heart failure and stage 1 through stage 4 chronic kidney disease, or unspecified chronic kidney disease; N39.0 Urinary tract infection, site not specified; E44.0 Moderate protein-calorie malnutrition; J44.0 Chronic obstructive pulmonary disease with (acute) lower respiratory infection; R64 Cachexia; J84.9 Interstitial pulmonary disease, unspecified; Z68.1 Body mass index [BMI] 19.9 or less, adult; F41.9 Anxiety disorder, unspecified; E87.6 Hypokalemia; E88.09 Other disorders of plasma-protein metabolism, not elsewhere classified; J44.9 Chronic obstructive pulmonary disease, unspecified; E03.9 Hypothyroidism, unspecified; E83.42 Hypomagnesemia; G62.9 Polyneuropathy, unspecified; G89.4 Chronic pain syndrome; F17.210 Nicotine dependence, cigarettes, uncomplicated; D72.819 Decreased white blood cell count, unspecified; D69.6 Thrombocytopenia, unspecified; F31.9 Bipolar disorder, unspecified; R62.7 Adult failure to thrive; Z22.322 Carrier or suspected carrier of Methicillin resistant Staphylococcus aureus; Z85.810 Personal history of malignant neoplasm of tongue; N18.9 Chronic kidney disease, unspecified
CPT/HCPCS: 36415; 36600; 71045-TC; 80048-TC; 80053-TC; 80061-TC; 80076-TC; 80202-TC; 81000-TC; 82803-TC; 83605-TC; 83735-TC; 83880; 84100-TC; 84443-TC; 84484-TC; 85025-TC; 85730-TC; 87040-TC; 87081-TC; 87086-TC; 93307-TC; 97116-TC; 97530-TC; G0378; J1650; J1940; J2543; J3370; J3475; J7030; J7050; J7060